=== PATIENT | female | born 1985 | race Caucasian/White ===

== ENCOUNTER 2017-06-06 12:56 | Emergency (ER) | payer MEDICAID ==
[~2017-06-06] VITALS: Ht 172.7 cm; Wt 81.7 kg
--- NOTE | ~2017-06-06 | EKG ---
[address] [employer] [place] [place] [address] ELECTROCARDIOGRAM REPORT Name: DIRKSAMANTHAKYLE LIS Room #: [id number] Admission: 06/06/17 Attend Phys: Discharge: Date of : 81 Report #: [id number] THIS REPORT FOR: //name// [facility] ED Test Date: 2017-06-06 Test Time: 14:00:59 Pat Name: KYLE HUFF Department: Room: Gender: Radius Grinder: johnytristan : 1985 Requested By: Alex Staley Order Number: [id number] MD: Armani Mireles Measurements Intervals Lancing Rate: 61 P: 27 CA: 140 QRS: 64 QRSD: 97 T: 45 QT: 419 QTc: 422 Interpretive Statements Sinus rhythm Compared to ECG 11/09/2004 17:12:32 No significant changes Electronically Signed On 06-06-2017 14:17:17 CDT by Armani Mireles [email or web address] <ELECTRONICALLY SIGNED> By: Armani Mireles MD 06/06/17 1417 1400 MD MAGDA Burton
[2017-06-06] MEDS ORDERED: NORCO 5-325 TA1 EACH PO (13:13)
[2017-06-06] MEDS ORDERED: KEFLEX500 MG PO (13:13)
[2017-06-06 13:44] LABS: HEMATOCRIT 40.7 % (37.0-47.0); HEMOGLOBIN 13.6 gm/dL (12.0-15.0); MCH 31.5 pg (26.0-34.0); MCHC 33.4 g/dL (28.0-37.0); MCV 94.1 fL (80.0-100.0); RBC 4.32 mil/uL (4.20-5.00); RDW 13.8 % (10.5-14.5); WBC 9.2 thou/uL (4.0-11.0)
[2017-06-06 13:48] LABS: ANION GAP 4 mmol/L (7-16); BUN 13 mg/dL (7-18); CALCIUM 8.7 mg/dL (8.5-10.1); CHLORIDE 106 mmol/L (98-107); CO2 28 mmol/L (21-32); CREATININE 0.7 mg/dL (0.6-1.0); GLUCOSE 87 mg/dL (74-106); POTASSIUM 4.5 mmol/L (3.5-5.1); SODIUM 138 mmol/L (136-145)
[2017-06-06 13:56] LABS: TROPONIN-I < 0.04 ng/mL (<0.04-0.07)
[2017-06-06 14:36] LABS: APTT 24.2 Seconds (24.5-32.8); PROTIME 10.6 Seconds (9.3-11.4)
[2017-06-06 14:42] LABS: URINE BILIRUBIN NEGATIVE (Negative); URINE BLOOD NEGATIVE (Negative); URINE COLOR YELLOW; URINE GLUCOSE-RANDOM* NEGATIVE (Negative); URINE KETONES NEGATIVE (Negative); URINE LEUKOCYTES-REFLEX TRACE (Negative); URINE PROTEIN (DIPSTICK) NEGATIVE (Negative); URINE SPECIFIC GRAVITY <= 1.005 (1.003-1.035); URINE UROBILINOGEN 0.2 E.U./dl (0.2-1.0)
[2017-06-06 14:50] LABS: AMP/METHAMP Negative (Negative); BARBITURATES Negative (Negative); BENZODIAZEPINES Negative (Negative); COCAINE Negative (Negative); METHADONE Negative (Negative); OPIATES POSITIVE (Negative); PCP Negative (Negative); THC Negative (Negative)
[2017-06-06 15:44] LABS: ALBUMIN 3.6 g/dL (3.4-5.0); DIRECT BILIRUBIN 0.1 mg/dL (<0.1-0.3); TOTAL BILIRUBIN 0.7 mg/dL (<0.1-1.0); TOTAL PROTEIN 7.2 g/dL (6.4-8.2)
[2017-06-06 16:38] VITALS: BP 106/53
== END 2017-06-06 18:37 | disposition home or self-care (01) ==
LOC: ER 12:56
PROVIDERS: Emergency Medicine
DX: R51 Headache (principal); R41.82 Altered mental status, unspecified; F17.210 Nicotine dependence, cigarettes, uncomplicated